=== PATIENT | male | born 1950 | race Two or more races ===

== ENCOUNTER → 2020-10-26 | Outpatient (CLI) | payer BC | END | disposition home or self-care (01) | LOC: LAB 15:17 | PROVIDERS: ATTEND Internal Medicine Gastroenterology | DX: B18.2 Chronic viral hepatitis C (principal) | CPT/HCPCS: 36415; 86803 ==

== ENCOUNTER → 2020-11-12 | Outpatient (CLI) | payer BC ==
[2020-11-12 12:51] LABS: Basophils # (auto) 0.1 10 ^3/uL (0-0.2); Basophils % (auto) 1.2 % (0.0-2.0); Eosinophils # (auto) 0.1 10 ^3/uL (0-0.8); Eosinophils % (auto) 1.9 % (0.0-7.0); Hematocrit 30.5 % (41.0-53.0); Hemoglobin 9.9 g/dL (13.5-17.5); Lymphocytes # (auto) 1.3 10 ^3/uL (0.4-5.4); Lymphocytes % (auto) 19.9 % (10.0-50.0); Mean Corpuscular Hemoglobin 27.4 pg (28.0-32.0); Mean Corpuscular Hgb Conc. 32.4 g/dL (32.0-36.0); Mean Corpuscular Volume 84.7 fL (80.0-100.0); Monocytes # (auto) 0.8 10 ^3/uL (0-1.3); Monocytes % (auto) 12.2 % (0.0-12.0); Neutrophils # (auto) 4.1 10 ^3/uL (1.6-8.6); Neutrophils % (auto) 64.8 % (37.0-80.0); Red Cell Distribution Width 16.7 % (11.8-14.3); White Blood Cell 6.3 10^3/uL (4.4-10.8)
[2020-11-12 13:20] LABS: Albumin 2.7 g/dL (3.4-5.0); Calcium 8.8 mg/dL (8.5-10.1); Potassium 4.1 mmol/L (3.5-5.1)
[2020-11-12 13:26] LABS: BUN/Creatinine Ratio 15.5; Bilirubin, Total 0.5 mg/dL (0.2-1.0)
== END | disposition home or self-care (01) ==
LOC: LAB 12:00
PROVIDERS: ATTEND Internal Medicine
DX: Z12.11 Encounter for screening for malignant neoplasm of colon (principal); I10 Essential (primary) hypertension; B18.2 Chronic viral hepatitis C
CPT/HCPCS: 36415; 80053; 80061; 83036; 84153; 85025

== ENCOUNTER → 2021-03-01 | Outpatient (CLI) | payer BC ==
[2021-03-01 15:30] LABS: Basophils # (auto) 0.1 10 ^3/uL (0-0.2); Basophils % (auto) 0.9 % (0.0-2.0); Eosinophils # (auto) 0.1 10 ^3/uL (0-0.8); Eosinophils % (auto) 1.1 % (0.0-7.0); Hematocrit 32.7 % (41.0-53.0); Hemoglobin 10.7 g/dL (13.5-17.5); Lymphocytes # (auto) 1.2 10 ^3/uL (0.4-5.4); Lymphocytes % (auto) 13.6 % (10.0-50.0); Mean Corpuscular Hemoglobin 28.3 pg (28.0-32.0); Mean Corpuscular Hgb Conc. 32.6 g/dL (32.0-36.0); Mean Corpuscular Volume 86.9 fL (80.0-100.0); Monocytes # (auto) 1.1 10 ^3/uL (0-1.3); Monocytes % (auto) 12.9 % (0.0-12.0); Neutrophils # (auto) 6.2 10 ^3/uL (1.6-8.6); Neutrophils % (auto) 71.5 % (37.0-80.0); Nucleated Red Blood Cells % 0.1 %; Red Blood Cells 3.77 10^6/uL (4.5-5.90); Red Cell Distribution Width 15.6 % (11.8-14.3); White Blood Cell 8.7 10^3/uL (4.4-10.8)
== END | disposition home or self-care (01) ==
LOC: LAB 15:13
PROVIDERS: ATTEND Internal Medicine
DX: D64.9 Anemia, unspecified (principal)
CPT/HCPCS: 36415; 85025

== ENCOUNTER → 2021-03-24 | Outpatient (CLI) | payer BC ==
[2021-03-24 11:04] LABS: Basophils # (auto) 0.1 10 ^3/uL (0-0.2); Basophils % (auto) 0.8 % (0.0-2.0); Eosinophils # (auto) 0.1 10 ^3/uL (0-0.8); Hematocrit 32.5 % (41.0-53.0); Hemoglobin 10.5 g/dL (13.5-17.5); Lymphocytes # (auto) 1.2 10 ^3/uL (0.4-5.4); Lymphocytes % (auto) 11.4 % (10.0-50.0); Mean Corpuscular Hgb Conc. 32.4 g/dL (32.0-36.0); Mean Corpuscular Volume 86.2 fL (80.0-100.0); Monocytes % (auto) 9.6 % (0.0-12.0); Neutrophils # (auto) 8.1 10 ^3/uL (1.6-8.6); Neutrophils % (auto) 77.2 % (37.0-80.0); Nucleated Red Blood Cells % 0.1 %; Red Blood Cells 3.77 10^6/uL (4.5-5.90); Red Cell Distribution Width 15.5 % (11.8-14.3); White Blood Cell 10.4 10^3/uL (4.4-10.8)
[2021-03-24 11:21] LABS: INR 1.08 (0.9-1.15); Partial Thromboplastin Time 29.2 sec (23.6-33.0)
[2021-03-24 12:19] LABS: Albumin 2.7 g/dL (3.4-5.0); Calcium 9.1 mg/dL (8.5-10.1); Potassium 4.6 mmol/L (3.5-5.1)
[2021-03-24 12:24] LABS: BUN/Creatinine Ratio 21.4; Bilirubin, Total 0.7 mg/dL (0.2-1.0); Total Protein 8.7 g/dL (6.4-8.2)
[2021-03-24 16:08] LABS: Urine Bacteria FEW /hpf (None Seen); Urine Blood Negative /uL (Negative); Urine Specific Gravity 1.011 (1.001-1.035); Urine WBC 45 /hpf (0 - 3)
== END | disposition home or self-care (01) ==
LOC: LAB 10:50
PROVIDERS: ATTEND Internal Medicine
DX: Z01.812 Encounter for preprocedural laboratory examination (principal)
CPT/HCPCS: 36415; 80053; 81001; 85025; 85610; 85730

== ENCOUNTER → 2021-04-30 | Outpatient (CLI) | payer BC ==
[2021-04-30 07:39] LABS: Basophils # (auto) 0.1 10 ^3/uL (0-0.2); Eosinophils # (auto) 0.3 10 ^3/uL (0-0.8); Hematocrit 24.1 % (41.0-53.0); Lymphocytes # (auto) 0.8 10 ^3/uL (0.4-5.4); Mean Corpuscular Volume 82.7 fL (80.0-100.0); Neutrophils # (auto) 6.7 10 ^3/uL (1.6-8.6); White Blood Cell 8.6 10^3/uL (4.4-10.8)
[2021-04-30 07:40] LABS: Urine Blood Negative /uL (Negative); Urine Specific Gravity 1.014 (1.001-1.035)
[2021-04-30 07:41] LABS: Eosinophils % (auto) 3.4 % (0.0-7.0); Hemoglobin 7.9 g/dL (13.5-17.5); Lymphocytes % (auto) 9.6 % (10.0-50.0); Mean Corpuscular Hemoglobin 27.2 pg (28.0-32.0); Mean Corpuscular Hgb Conc. 32.9 g/dL (32.0-36.0); Monocytes # (auto) 0.7 10 ^3/uL (0-1.3); Monocytes % (auto) 8.6 % (0.0-12.0); Neutrophils % (auto) 77.4 % (37.0-80.0); Nucleated Red Blood Cells % 0.1 %; Red Blood Cells 2.91 10^6/uL (4.5-5.90); Red Cell Distribution Width 16.1 % (11.8-14.3)
[2021-04-30 08:03] LABS: INR 1.05 (0.9-1.15); Partial Thromboplastin Time 27.6 sec (23.6-33.0)
[2021-04-30 08:21] LABS: Potassium 4.3 mmol/L (3.5-5.1)
[2021-04-30 08:27] LABS: Albumin 2.1 g/dL (3.4-5.0); Bilirubin, Total 0.2 mg/dL (0.2-1.0); Calcium 8.7 mg/dL (8.5-10.1); Total Protein 7.5 g/dL (6.4-8.2)
== END | disposition home or self-care (01) ==
LOC: LAB 06:49
PROVIDERS: ATTEND Specialist
DX: Z01.812 Encounter for preprocedural laboratory examination (principal); H25.12 Age-related nuclear cataract, left eye; D68.9 Coagulation defect, unspecified; Z79.01 Long term (current) use of anticoagulants
CPT/HCPCS: 36415; 80053; 81003; 85025; 85610; 85730

== ENCOUNTER → 2021-06-25 | Outpatient (CLI) | payer BC ==
[2021-06-25 12:35] LABS: Eosinophils # (auto) 0.1 10 ^3/uL (0-0.8); Hemoglobin 8.7 g/dL (13.5-17.5); Monocytes # (auto) 0.6 10 ^3/uL (0-1.3); Neutrophils # (auto) 4.4 10 ^3/uL (1.6-8.6); White Blood Cell 6.2 10^3/uL (4.4-10.8)
[2021-06-25 12:37] LABS: Basophils # (auto) 0.1 10 ^3/uL (0-0.2); Eosinophils % (auto) 2.1 % (0.0-7.0); Hematocrit 28.5 % (41.0-53.0); Mean Corpuscular Hgb Conc. 30.5 g/dL (32.0-36.0); Mean Corpuscular Volume 78.5 fL (80.0-100.0); Monocytes % (auto) 10.1 % (0.0-12.0); Neutrophils % (auto) 70.8 % (37.0-80.0); Nucleated Red Blood Cells % 0.1 %; Red Blood Cells 3.62 10^6/uL (4.5-5.90); Red Cell Distribution Width 17.1 % (11.8-14.3)
[2021-06-25 13:06] LABS: BUN/Creatinine Ratio 16.1; Potassium 4.4 mmol/L (3.5-5.1)
== END | disposition home or self-care (01) ==
LOC: LAB 12:06
PROVIDERS: ATTEND Internal Medicine
DX: I10 Essential (primary) hypertension (principal); D64.9 Anemia, unspecified
CPT/HCPCS: 36415; 80048; 85025

== ENCOUNTER 2021-11-03 10:11 | Inpatient (IN) | payer BC, MEDICARE ==
[~2021-11-03] VITALS: Ht 175.3 cm; Wt 72.7 kg
[2021-11-03] VITALS (8 sets, daily range): BP systolic 113–136; BP diastolic 62–72
[2021-11-03 11:06] LABS: INR 1.13 (0.9-1.15); Partial Thromboplastin Time 29.1 sec (24.6-33.4)
[2021-11-03 11:09] LABS: Albumin 1.5 g/dL (3.4-5.0); Calcium 8.5 mg/dL (8.5-10.1); Magnesium 2.3 mg/dL (1.6-2.6); Potassium 3.9 mmol/L (3.5-5.1)
[2021-11-03 11:12] LABS: BUN/Creatinine Ratio 15.3; Basophils # (auto) 0 10 ^3/uL (0-0.2); Basophils % (auto) 0.4 % (0.0-2.0); Bilirubin, Total 0.4 mg/dL (0.2-1.0); Eosinophils # (auto) 0 10 ^3/uL (0-0.8); Eosinophils % (auto) 0.3 % (0.0-7.0); Hematocrit 21.3 % (41.0-53.0); Lymphocytes # (auto) 0.8 10 ^3/uL (0.4-5.4); Lymphocytes % (auto) 7.9 % (10.0-50.0); Mean Corpuscular Hemoglobin 21.1 pg (28.0-32.0); Mean Corpuscular Hgb Conc. 29.5 g/dL (32.0-36.0); Mean Corpuscular Volume 71.6 fL (80.0-100.0); Monocytes # (auto) 0.8 10 ^3/uL (0-1.3); Monocytes % (auto) 7.2 % (0.0-12.0); Neutrophils # (auto) 8.9 10 ^3/uL (1.6-8.6); Neutrophils % (auto) 84.2 % (37.0-80.0); Red Blood Cells 2.97 10^6/uL (4.5-5.90); Total Protein 7.2 g/dL (6.4-8.2); White Blood Cell 10.6 10^3/uL (4.4-10.8)
[2021-11-03 11:23] LABS: Hemoglobin 6.3 g/dL (13.5-17.5)
[2021-11-03] MEDS ORDERED: SODIUM CHLORIDE 0.9% 1,000 ML IVB ONE (12:30)
[2021-11-03 12:41] LABS: Albumin 1.5 g/dL (3.4-5.0); Calcium 8.7 mg/dL (8.5-10.1); Potassium 4.3 mmol/L (3.5-5.1)
[2021-11-03 12:44] LABS: BUN/Creatinine Ratio 16.2; Bilirubin, Total 0.4 mg/dL (0.2-1.0); Total Protein 7.5 g/dL (6.4-8.2)
[2021-11-03 19:44] LABS: Eosinophils # (auto) 0.1 10 ^3/uL (0-0.8)
[2021-11-03 19:47] LABS: Basophils # (auto) 0.1 10 ^3/uL (0-0.2); Basophils % (auto) 0.5 % (0.0-2.0); Eosinophils % (auto) 0.6 % (0.0-7.0); Hematocrit 25.7 % (41.0-53.0); Hemoglobin 7.6 g/dL (13.5-17.5); Lymphocytes % (auto) 7.3 % (10.0-50.0); Mean Corpuscular Hemoglobin 22.6 pg (28.0-32.0); Mean Corpuscular Hgb Conc. 29.4 g/dL (32.0-36.0); Mean Corpuscular Volume 76.7 fL (80.0-100.0); Monocytes # (auto) 1.2 10 ^3/uL (0-1.3); Monocytes % (auto) 8.9 % (0.0-12.0); Neutrophils # (auto) 10.8 10 ^3/uL (1.6-8.6); Neutrophils % (auto) 82.7 % (37.0-80.0); Nucleated Red Blood Cells % 0.2 %; Red Blood Cells 3.35 10^6/uL (4.5-5.90); Red Cell Distribution Width 18.7 % (11.8-14.3); White Blood Cell 13.1 10^3/uL (4.4-10.8)
[2021-11-03] MEDS ORDERED: SODIUM CHLORIDE 0.9% 1,000 ML IV SCH (22:45)
[2021-11-03] MEDS ORDERED: ONDANSETRON HCL 4 MG/2 ML VIAL IV PRN (22:45)
[2021-11-04 00:15] VITALS: BP 121/69
[2021-11-04 00:30] VITALS: BP 127/68
[2021-11-04 00:45] VITALS: BP 122/74
[2021-11-04] MEDS ORDERED: PANTOPRAZOLE 40 MG/10 ML VIAL INJ IV SCH (10:00)
[2021-11-04] MEDS ORDERED: cefTRIAXone 1GM/50ML D5W 50 ML IV ONE (10:15)
[2021-11-05] MEDS ORDERED: cefTRIAXone 1GM/50ML D5W 50 ML IV SCH (09:00)
== END 2021-11-04 00:58 | disposition left against medical advice (07) | DRG 377 ==
LOC: ER 10:14 → OVERFLOW 22:40
PROVIDERS: ADMIT Nurse Practitioner; ATTEND Internal Medicine
PROC: 30233N1 Transfusion of Nonautologous Red Blood Cells into Peripheral Vein, Percutaneous Approach (ICD-10-PCS; principal; 2021-11-03)
DX: K92.2 Gastrointestinal hemorrhage, unspecified (principal); E43 Unspecified severe protein-calorie malnutrition; B19.20 Unspecified viral hepatitis C without hepatic coma; M41.9 Scoliosis, unspecified; Z53.29 Procedure and treatment not carried out because of patient's decision for other reasons; Z20.822 Contact with and (suspected) exposure to COVID-19; D64.9 Anemia, unspecified; Z88.0 Allergy status to penicillin; Z68.23 Body mass index [BMI] 23.0-23.9, adult
CPT/HCPCS: 36415; 71045; 80053; 80320; 83605; 83735; 83880; 84484; 85025; 85610; 85730; 86850; 86900; 86901; 86920; 93005; 96360; 99291; G0378

== ENCOUNTER 2021-11-26 12:06 | Inpatient (IN) | payer BC, MEDICARE ==
[~2021-11-26] VITALS: Ht 175.3 cm; Wt 74.9 kg
[2021-11-26] MEDS ORDERED: VANCOMYCIN 1GM/250ML 250 ML IV ONE (14:45)
[2021-11-26] MEDS ORDERED: SODIUM CHLORIDE 0.9% 1,000 ML IVB ONE (14:45)
[2021-11-26] MEDS ORDERED: PIPERACILLIN-TAZOB 3.375GM 100 ML IV ONE (15:15)
[2021-11-26 15:24] LABS: Basophils # (auto) 0 10 ^3/uL (0-0.2); Eosinophils # (auto) 0.1 10 ^3/uL (0-0.8); Eosinophils % (auto) 0.3 % (0.0-7.0); Lymphocytes # (auto) 0.8 10 ^3/uL (0.4-5.4); White Blood Cell 16.5 10^3/uL (4.4-10.8)
[2021-11-26 15:27] LABS: Basophils % (auto) 0.2 % (0.0-2.0); Hematocrit 22.4 % (41.0-53.0); Lymphocytes % (auto) 4.7 % (10.0-50.0); Mean Corpuscular Hemoglobin 22.1 pg (28.0-32.0); Mean Corpuscular Hgb Conc. 29.1 g/dL (32.0-36.0); Mean Corpuscular Volume 75.9 fL (80.0-100.0); Monocytes # (auto) 0.6 10 ^3/uL (0-1.3); Monocytes % (auto) 3.8 % (0.0-12.0); Red Blood Cells 2.95 10^6/uL (4.5-5.90); Red Cell Distribution Width 22.4 % (11.8-14.3)
[2021-11-26 15:41] LABS: Calcium 9.5 mg/dL (8.5-10.1); Potassium 4.5 mmol/L (3.5-5.1)
[2021-11-26 15:58] LABS: Albumin 1.4 g/dL (3.4-5.0); Bilirubin, Total 0.2 mg/dL (0.2-1.0); Total Protein 6.8 g/dL (6.4-8.2)
[2021-11-26 16:05] LABS: Hemoglobin 6.5 g/dL (13.5-17.5)
[2021-11-26] MEDS ORDERED: MORPHINE SULFATE INJ 2 MG/ml SYRG IV PRN (17:45)
[2021-11-26] MEDS ORDERED: VANCOMYCIN PER PHARMACY 0 MG IV SCH (18:00)
[2021-11-26] MEDS ORDERED: ALBUMIN 25% 50 ML IV ONE (18:30)
[2021-11-26] MEDS: SODIUM CHLORIDE 0.9% 1,000 ML IV SCH (18:43)
[2021-11-26] MEDS: MEROPENEM 1GM IVPB 100 ML IV SCH (21:54)
[2021-11-26] MEDS ORDERED: PIPERACILLIN-TAZOB 3.375GM 100 ML IV SCH (22:00)
[2021-11-26] MEDS: NOREPINEPHRINE 8 MG/250ML KIT 250 ML IV SCH (23:20)
[2021-11-27] VITALS (28 sets, daily range): BP systolic 93–124; BP diastolic 51–75
[2021-11-27 06:51] LABS: Basophils # (auto) 0.2 10 ^3/uL (0-0.2); Eosinophils # (auto) 0.1 10 ^3/uL (0-0.8); Monocytes # (auto) 0.8 10 ^3/uL (0-1.3)
[2021-11-27 06:53] LABS: Basophils % (auto) 1.1 % (0.0-2.0); Eosinophils % (auto) 0.8 % (0.0-7.0); Hematocrit 20.6 % (41.0-53.0); Lymphocytes # (auto) 0.8 10 ^3/uL (0.4-5.4); Lymphocytes % (auto) 4.8 % (10.0-50.0); Mean Corpuscular Hemoglobin 22.5 pg (28.0-32.0); Mean Corpuscular Hgb Conc. 30.4 g/dL (32.0-36.0); Mean Corpuscular Volume 74.1 fL (80.0-100.0); Monocytes % (auto) 4.9 % (0.0-12.0); Neutrophils # (auto) 14.6 10 ^3/uL (1.6-8.6); Neutrophils % (auto) 88.4 % (37.0-80.0); Nucleated Red Blood Cells % 0.1 %; Red Blood Cells 2.78 10^6/uL (4.5-5.90); White Blood Cell 16.5 10^3/uL (4.4-10.8)
[2021-11-27 07:29] LABS: Red Cell Distribution Width 21.9 % (11.8-14.3)
[2021-11-27 07:31] LABS: Hemoglobin 6.3 g/dL (13.5-17.5)
[2021-11-27 08:01] LABS: Albumin 1.3 g/dL (3.4-5.0); Calcium 8.9 mg/dL (8.5-10.1); Potassium 4.2 mmol/L (3.5-5.1)
[2021-11-27 08:04] LABS: BUN/Creatinine Ratio 20.1; Bilirubin, Total 0.2 mg/dL (0.2-1.0); Total Protein 6.4 g/dL (6.4-8.2)
[2021-11-27] MEDS: MEROPENEM 1GM IVPB 100 ML IV SCH ×2 (09:14→20:44)
[2021-11-27] MEDS: SODIUM CHLORIDE 0.9% 1,000 ML IV SCH ×2 (09:14→21:34)
[2021-11-27 11:16] LABS: Urine Bacteria FEW /hpf (None Seen); Urine Blood 1+ /uL (Negative); Urine Mucus FEW (None Seen); Urine Specific Gravity 1.017 (1.001-1.035); Urine WBC 44 /hpf (0 - 3)
[2021-11-27] MEDS: VANCOMYCIN 750mg/250ml 250 ML IV SCH (13:26)
[2021-11-27] MEDS: NOREPINEPHRINE 8 MG/250ML KIT 250 ML IV SCH (21:33)
[2021-11-27 22:35] LABS: Monocytes # (auto) 0.7 10 ^3/uL (0-1.3); Red Cell Distribution Width 20.7 % (11.8-14.3); White Blood Cell 16.3 10^3/uL (4.4-10.8)
[2021-11-27 22:37] LABS: Basophils # (auto) 0.2 10 ^3/uL (0-0.2); Basophils % (auto) 1.2 % (0.0-2.0); Eosinophils # (auto) 0.1 10 ^3/uL (0-0.8); Eosinophils % (auto) 0.4 % (0.0-7.0); Hematocrit 30.6 % (41.0-53.0); Hemoglobin 9.6 g/dL (13.5-17.5); Lymphocytes % (auto) 6.3 % (10.0-50.0); Mean Corpuscular Hemoglobin 24.2 pg (28.0-32.0); Mean Corpuscular Hgb Conc. 31.4 g/dL (32.0-36.0); Monocytes % (auto) 4.6 % (0.0-12.0); Neutrophils # (auto) 14.2 10 ^3/uL (1.6-8.6); Neutrophils % (auto) 87.5 % (37.0-80.0); Red Blood Cells 3.97 10^6/uL (4.5-5.90)
[2021-11-28] VITALS (38 sets, daily range): BP systolic 89–128; BP diastolic 41–69
[2021-11-28 04:13] LABS: BUN/Creatinine Ratio 20.6; Calcium 8.6 mg/dL (8.5-10.1); Potassium 3.9 mmol/L (3.5-5.1)
[2021-11-28] MEDS: MEROPENEM 1GM IVPB 100 ML IV SCH ×2 (08:40→19:52)
[2021-11-28] MEDS: VANCOMYCIN 750mg/250ml 250 ML IV SCH ×2 (13:00→17:20)
[2021-11-28] MEDS: SODIUM CHLORIDE 0.9% 1,000 ML IV SCH (21:00)
[2021-11-29] MEDS: MEROPENEM 1GM IVPB 100 ML IV SCH ×2 (00:50→09:32)
[2021-11-29 05:00] VITALS: BP 106/68
[2021-11-29] MEDS: SODIUM CHLORIDE 0.9% 1,000 ML IV SCH ×2 (09:33→17:45)
[2021-11-29 10:58] LABS: Basophils # (auto) 0.1 10 ^3/uL (0-0.2); Eosinophils # (auto) 0.1 10 ^3/uL (0-0.8); Hemoglobin 8.2 g/dL (13.5-17.5); Monocytes # (auto) 0.5 10 ^3/uL (0-1.3)
[2021-11-29 10:59] LABS: Basophils % (auto) 1.1 % (0.0-2.0); Eosinophils % (auto) 1.1 % (0.0-7.0); Hematocrit 27.1 % (41.0-53.0); Lymphocytes # (auto) 0.8 10 ^3/uL (0.4-5.4); Mean Corpuscular Hemoglobin 23.8 pg (28.0-32.0); Mean Corpuscular Volume 79.1 fL (80.0-100.0); Monocytes % (auto) 5.5 % (0.0-12.0); Neutrophils % (auto) 84.3 % (37.0-80.0); Nucleated Red Blood Cells % 0.1 %; Red Blood Cells 3.43 10^6/uL (4.5-5.90); Red Cell Distribution Width 21.5 % (11.8-14.3); White Blood Cell 9.5 10^3/uL (4.4-10.8)
[2021-11-29 13:00] VITALS: BP 106/63
[2021-11-29] MEDS ORDERED: VANCOMYCIN 1GM/250ML 250 ML IV SCH (13:00)
[2021-11-29] MEDS ORDERED: levoFLOXacin 500MG 100 ML IV ONE (13:45)
[2021-11-29] MEDS: SODIUM FERR GLUC 62.5MG/5ML 125 MG in SODIUM CHL 0.9% 100 ML IV SCH (13:59)
[2021-11-29 17:00] VITALS: BP 112/61
[2021-11-29 22:00] VITALS: BP 109/66
[2021-11-30] MEDS: SODIUM CHLORIDE 0.9% 1,000 ML IV SCH (01:45)
[2021-11-30 05:00] VITALS: BP 117/69
[2021-11-30 07:06] LABS: Immunoglobulin G, Serum 2283 mg/dL (603-1613)
[2021-11-30 09:00] VITALS: BP 122/70
[2021-11-30] MEDS ORDERED: levoFLOXacin 500MG 100 ML IV SCH (10:00)
[2021-11-30] MEDS ORDERED: LEVO500T31 PO (10:34)
[2021-11-30] MEDS: SODIUM FERR GLUC 62.5MG/5ML 125 MG in SODIUM CHL 0.9% 100 ML IV SCH (12:00)
[2021-11-30 14:30] VITALS: BP 111/68
== END 2021-11-30 16:00 | disposition home or self-care (01) | DRG 871 ==
LOC: ER 12:15 → TELE 17:54 → ICU WEST 11-27 15:00 → WEST WING 11-28 12:33 → TELE-WESTW 11-28 16:02
PROVIDERS: ADMIT Registered Nurse; ATTEND Family Medicine
PROC: 30233N1 Transfusion of Nonautologous Red Blood Cells into Peripheral Vein, Percutaneous Approach (ICD-10-PCS; principal; 2021-11-27)
DX: A41.59 Other Gram-negative sepsis (principal); E43 Unspecified severe protein-calorie malnutrition; L89.324 Pressure ulcer of left buttock, stage 4; L89.314 Pressure ulcer of right buttock, stage 4; L89.154 Pressure ulcer of sacral region, stage 4; R65.21 Severe sepsis with septic shock; G82.20 Paraplegia, unspecified; M86.652 Other chronic osteomyelitis, left thigh; Z20.822 Contact with and (suspected) exposure to COVID-19; B95.2 Enterococcus as the cause of diseases classified elsewhere; D50.9 Iron deficiency anemia, unspecified; Z68.22 Body mass index [BMI] 22.0-22.9, adult; Z74.01 Bed confinement status; Z88.0 Allergy status to penicillin
CPT/HCPCS: 36415; 71045; 72192; 80048; 80053; 80202; 81001; 82232; 82565; 82784; 83605; 83615; 83883; 85025; 85045; 86334; 86850; 86870; 86880; 86900; 86901; 86922; 87040; 87077; 87081; 87086; 87186; 87205; 96365; 96367; 99291; G0378; J1956; J2185; J2543

== ENCOUNTER → 2022-01-11 | Outpatient (CLI) | payer BC, MEDICARE ==
[~2022-01-11] MED LIST: LEVO500T31 PO
[2022-01-11 11:49] LABS: Basophils # (auto) 0.1 10 ^3/uL (0-0.2); Eosinophils # (auto) 0.1 10 ^3/uL (0-0.8); Hemoglobin 8.5 g/dL (13.5-17.5); Mean Corpuscular Volume 80.2 fL (80.0-100.0)
[2022-01-11 11:51] LABS: Basophils % (auto) 0.9 % (0.0-2.0); Hematocrit 27.6 % (41.0-53.0); Lymphocytes % (auto) 9.4 % (10.0-50.0); Mean Corpuscular Hemoglobin 24.6 pg (28.0-32.0); Mean Corpuscular Hgb Conc. 30.7 g/dL (32.0-36.0); Monocytes # (auto) 0.7 10 ^3/uL (0-1.3); Monocytes % (auto) 6.4 % (0.0-12.0); Neutrophils # (auto) 8.8 10 ^3/uL (1.6-8.6); Neutrophils % (auto) 82.3 % (37.0-80.0); Red Blood Cells 3.44 10^6/uL (4.5-5.90); Red Cell Distribution Width 18.8 % (11.8-14.3); White Blood Cell 10.7 10^3/uL (4.4-10.8)
[2022-01-11 12:46] LABS: Potassium 4.3 mmol/L (3.5-5.1)
[2022-01-11 12:55] LABS: Albumin 1.3 g/dL (3.4-5.0); BUN/Creatinine Ratio 16.2; Bilirubin, Total 0.4 mg/dL (0.2-1.0); Calcium 8.2 mg/dL (8.5-10.1); Total Protein 6.9 g/dL (6.4-8.2)
== END | disposition home or self-care (01) ==
LOC: LAB 11:12
PROVIDERS: ATTEND Internal Medicine
DX: L89.304 Pressure ulcer of unspecified buttock, stage 4 (principal); D64.9 Anemia, unspecified
CPT/HCPCS: 36415; 80053; 85025

== ENCOUNTER → 2022-03-31 | Outpatient (CLI) | payer BC, MEDICARE ==
[2022-03-31 13:32] LABS: Basophils # (auto) 0.1 10 ^3/uL (0-0.2); Eosinophils # (auto) 0.2 10 ^3/uL (0-0.8); Lymphocytes # (auto) 1.4 10 ^3/uL (0.4-5.4); Mean Corpuscular Volume 75.6 fL (80.0-100.0)
[2022-03-31 13:33] LABS: Basophils % (auto) 0.8 % (0.0-2.0); Eosinophils % (auto) 1.5 % (0.0-7.0); Hematocrit 26.7 % (41.0-53.0); Hemoglobin 8.2 g/dL (13.5-17.5); Mean Corpuscular Hemoglobin 23.3 pg (28.0-32.0); Mean Corpuscular Hgb Conc. 30.8 g/dL (32.0-36.0); Monocytes % (auto) 9.3 % (0.0-12.0); Neutrophils # (auto) 8.3 10 ^3/uL (1.6-8.6); Neutrophils % (auto) 75.4 % (37.0-80.0); Red Blood Cells 3.53 10^6/uL (4.5-5.90); Red Cell Distribution Width 15.7 % (11.8-14.3)
[2022-03-31 14:04] LABS: Albumin 1.6 g/dL (3.4-5.0); Potassium 4.2 mmol/L (3.5-5.1)
[2022-03-31 14:15] LABS: BUN/Creatinine Ratio 18.4; Bilirubin, Total 0.2 mg/dL (0.2-1.0); Total Protein 7.9 g/dL (6.4-8.2)
== END | disposition home or self-care (01) ==
LOC: LAB 13:19
PROVIDERS: ATTEND Internal Medicine
DX: L89.304 Pressure ulcer of unspecified buttock, stage 4 (principal); C82.20 Follicular lymphoma grade III, unspecified, unspecified site; K92.2 Gastrointestinal hemorrhage, unspecified; D50.9 Iron deficiency anemia, unspecified
CPT/HCPCS: 36415; 80053; 85025; 85652

== ENCOUNTER → 2022-04-14 | Outpatient (CLI) | payer BC, MEDICARE ==
[2022-04-14 12:40] LABS: Basophils # (auto) 0.1 10 ^3/uL (0-0.2); Eosinophils # (auto) 0.1 10 ^3/uL (0-0.8); Monocytes # (auto) 0.6 10 ^3/uL (0-1.3); Neutrophils # (auto) 9.4 10 ^3/uL (1.6-8.6)
[2022-04-14 12:41] LABS: Basophils % (auto) 0.8 % (0.0-2.0); Hemoglobin 7.4 g/dL (13.5-17.5); Lymphocytes % (auto) 8.6 % (10.0-50.0); Mean Corpuscular Hemoglobin 23.6 pg (28.0-32.0); Mean Corpuscular Hgb Conc. 30.7 g/dL (32.0-36.0); Mean Corpuscular Volume 76.6 fL (80.0-100.0); Monocytes % (auto) 5.5 % (0.0-12.0); Neutrophils % (auto) 84.1 % (37.0-80.0); Nucleated Red Blood Cells % 0.1 %; Red Blood Cells 3.14 10^6/uL (4.5-5.90); Red Cell Distribution Width 16.4 % (11.8-14.3); White Blood Cell 11.2 10^3/uL (4.4-10.8)
[2022-04-14 13:00] LABS: Amylase 29 U/L (25-115); Lipase 121 U/L (73-393)
[2022-04-14 13:08] LABS: INR 1.04 (0.9-1.15); Partial Thromboplastin Time 25.9 sec (24.6-33.4)
== END | disposition home or self-care (01) ==
LOC: LAB 12:19
PROVIDERS: ATTEND Internal Medicine
DX: L89.319 Pressure ulcer of right buttock, unspecified stage (principal); R10.9 Unspecified abdominal pain; E43 Unspecified severe protein-calorie malnutrition; D64.9 Anemia, unspecified
CPT/HCPCS: 36415; 82140; 82150; 83036; 83690; 84443; 85025; 85610; 85730

== ENCOUNTER 2022-05-06 10:47 | Emergency (ER) | payer BC, MEDICARE ==
[~2022-05-06] VITALS: Ht 177.8 cm; Wt 72.7 kg
[2022-05-06 12:33] LABS: INR 1.09 (0.9-1.15); Partial Thromboplastin Time 27.1 sec (24.6-33.4)
[2022-05-06 12:38] LABS: Albumin 1.4 g/dL (3.4-5.0); Calcium 8.7 mg/dL (8.5-10.1); Potassium 4.5 mmol/L (3.5-5.1)
[2022-05-06 12:41] LABS: BUN/Creatinine Ratio 25.9; Bilirubin, Total 0.2 mg/dL (0.2-1.0); Total Protein 7.6 g/dL (6.4-8.2)
[2022-05-06 13:56] LABS: Basophils # (auto) 0.1 10 ^3/uL (0-0.2); Eosinophils # (auto) 0.1 10 ^3/uL (0-0.8); Eosinophils % (auto) 0.6 % (0.0-7.0); Hematocrit 21.8 % (41.0-53.0); Lymphocytes # (auto) 1.1 10 ^3/uL (0.4-5.4); Lymphocytes % (auto) 8.5 % (10.0-50.0); Mean Corpuscular Hemoglobin 22.9 pg (28.0-32.0); Mean Corpuscular Hgb Conc. 30.7 g/dL (32.0-36.0); Mean Corpuscular Volume 74.7 fL (80.0-100.0); Monocytes # (auto) 1.2 10 ^3/uL (0-1.3); Monocytes % (auto) 8.9 % (0.0-12.0); Neutrophils # (auto) 10.8 10 ^3/uL (1.6-8.6); Nucleated Red Blood Cells % 0.1 %; Red Blood Cells 2.92 10^6/uL (4.5-5.90); Red Cell Distribution Width 17.2 % (11.8-14.3); White Blood Cell 13.3 10^3/uL (4.4-10.8)
[2022-05-06 13:59] LABS: Hemoglobin 6.7 g/dL (13.5-17.5)
[2022-05-07 00:36] VITALS: BP 89/52
[2022-05-07 01:00] VITALS: BP 94/51
[2022-05-07 02:40] VITALS: BP 100/51
[2022-05-07 03:20] VITALS: BP 92/51
[2022-05-07 04:05] LABS: Hematocrit 25.7 % (41.0-53.0)
[2022-05-07 05:00] VITALS: BP 92/57
== END 2022-05-06 23:58 | disposition home or self-care (01) ==
LOC: ER 10:47
DX: D64.9 Anemia, unspecified (principal); Z88.5 Allergy status to narcotic agent; Z88.0 Allergy status to penicillin; Z98.890 Other specified postprocedural states
CPT/HCPCS: 36415; 36430; 80053; 85014; 85018; 85025; 85610; 85730; 86850; 86870; 86900; 86901; 93005; 99291; P9016; 86922

== ENCOUNTER → 2022-05-23 | Outpatient (CLI) | payer BC, MEDICARE ==
[2022-05-23 14:08] LABS: Basophils # (auto) 0.1 10 ^3/uL (0-0.2); Eosinophils # (auto) 0.1 10 ^3/uL (0-0.8); Hematocrit 28.4 % (41.0-53.0); Hemoglobin 9.1 g/dL (13.5-17.5); Lymphocytes # (auto) 1.1 10 ^3/uL (0.4-5.4); Mean Corpuscular Hemoglobin 24.2 pg (28.0-32.0)
[2022-05-23 14:10] LABS: Basophils % (auto) 1.3 % (0.0-2.0); Eosinophils % (auto) 1.1 % (0.0-7.0); Lymphocytes % (auto) 10.8 % (10.0-50.0); Mean Corpuscular Hgb Conc. 31.9 g/dL (32.0-36.0); Mean Corpuscular Volume 75.9 fL (80.0-100.0); Monocytes # (auto) 0.9 10 ^3/uL (0-1.3); Neutrophils # (auto) 7.8 10 ^3/uL (1.6-8.6); Neutrophils % (auto) 77.8 % (37.0-80.0); Red Blood Cells 3.75 10^6/uL (4.5-5.90); Red Cell Distribution Width 19.2 % (11.8-14.3)
== END | disposition home or self-care (01) ==
LOC: LAB 13:55
PROVIDERS: ATTEND Internal Medicine
DX: D64.9 Anemia, unspecified (principal)
CPT/HCPCS: 36415; 85025

== ENCOUNTER → 2022-08-04 | Outpatient (CLI) | payer BC, MEDICARE ==
[2022-08-04 12:02] LABS: Eosinophils # (auto) 0.2 10 ^3/uL (0-0.8); Eosinophils % (auto) 1.8 % (0.0-7.0); Hemoglobin 7.8 g/dL (13.5-17.5); Lymphocytes # (auto) 1.3 10 ^3/uL (0.4-5.4)
[2022-08-04 12:03] LABS: Basophils # (auto) 0.1 10 ^3/uL (0-0.2); Basophils % (auto) 0.5 % (0.0-2.0); Hematocrit 26.3 % (41.0-53.0); Lymphocytes % (auto) 12.4 % (10.0-50.0); Mean Corpuscular Hemoglobin 21.4 pg (28.0-32.0); Mean Corpuscular Hgb Conc. 29.6 g/dL (32.0-36.0); Mean Corpuscular Volume 72.5 fL (80.0-100.0); Monocytes % (auto) 8.9 % (0.0-12.0); Neutrophils # (auto) 8.2 10 ^3/uL (1.6-8.6); Neutrophils % (auto) 76.4 % (37.0-80.0); Red Blood Cells 3.63 10^6/uL (4.5-5.90); Red Cell Distribution Width 17.6 % (11.8-14.3); White Blood Cell 10.8 10^3/uL (4.4-10.8)
[2022-08-04 12:48] LABS: Albumin 1.4 g/dL (3.4-5.0); Calcium 8.8 mg/dL (8.5-10.1); Potassium 3.8 mmol/L (3.5-5.1)
[2022-08-04 12:52] LABS: BUN/Creatinine Ratio 19.5 (10.0-20.0); Bilirubin, Total 0.2 mg/dL (0.2-1.0)
[2022-08-04 17:06] LABS: INR 1.02 (0.9-1.15)
== END | disposition home or self-care (01) ==
LOC: LAB 11:37
PROVIDERS: ATTEND Internal Medicine
DX: B18.2 Chronic viral hepatitis C (principal); M86.9 Osteomyelitis, unspecified; D64.9 Anemia, unspecified
CPT/HCPCS: 36415; 80053; 82140; 85025; 85610; 85652

== ENCOUNTER → 2022-09-28 | Outpatient (CLI) | payer BC, MEDICARE ==
[~2022-09-28] MED LIST changes: +BUPIVACAINE HCL 0.25% P/F 10 ML VIAL ONE; +IOHEXOL 300 MG/ML 100ML BOTTLE IJ ONE; +LIDOCAINE 2%HCL (LOCAL ANESTH.) INJ 10ml MDV ONE; +methylPREDNISolone ACETATE 80 MG/ML VL ONE
== END | disposition home or self-care (01) ==
LOC: EDSEX 11:10 → XYW 11:10
PROVIDERS: ATTEND Orthopaedic Surgery Adult Reconstructive Orthopaedic Surgery
DX: M25.512 Pain in left shoulder (principal); M12.811 Other specific arthropathies, not elsewhere classified, right shoulder
CPT/HCPCS: 20610; 73020; 76000; J1040; J2001; J3490; Q9967

== ENCOUNTER 2022-10-26 11:57 | Inpatient (IN) | payer BC, MEDICARE ==
[~2022-10-26] VITALS: Ht 175.3 cm; Wt 72.2 kg
[~2022-10-26 11:57] MED LIST changes: -BUPIVACAINE HCL 0.25% P/F 10 ML VIAL ONE; -IOHEXOL 300 MG/ML 100ML BOTTLE IJ ONE; -LIDOCAINE 2%HCL (LOCAL ANESTH.) INJ 10ml MDV ONE; -methylPREDNISolone ACETATE 80 MG/ML VL ONE
[2022-10-26 13:05] LABS: Basophils # (auto) 0.1 10 ^3/uL (0-0.2); Eosinophils # (auto) 0.1 10 ^3/uL (0-0.8); Lymphocytes # (auto) 1.4 10 ^3/uL (0.4-5.4); Neutrophils % (auto) 75.5 % (37.0-80.0)
[2022-10-26 13:07] LABS: Basophils % (auto) 0.7 % (0.0-2.0); Eosinophils % (auto) 0.7 % (0.0-7.0); Hematocrit 24.6 % (41.0-53.0); Hemoglobin 7.1 g/dL (13.5-17.5); Lymphocytes % (auto) 11.8 % (10.0-50.0); Mean Corpuscular Hemoglobin 20.8 pg (28.0-32.0); Mean Corpuscular Volume 71.9 fL (80.0-100.0); Monocytes # (auto) 1.3 10 ^3/uL (0-1.3); Monocytes % (auto) 11.3 % (0.0-12.0); Neutrophils # (auto) 8.7 10 ^3/uL (1.6-8.6); Red Blood Cells 3.43 10^6/uL (4.5-5.90); Red Cell Distribution Width 19.5 % (11.8-14.3); White Blood Cell 11.5 10^3/uL (4.4-10.8)
[2022-10-26 13:30] LABS: Alanine Aminotransferase < 6 U/L (16-61); Albumin 1.2 g/dL (3.4-5.0); Anion Gap 6 (5-15); Blood Urea Nitrogen 19 mg/dL (7-18); Calcium 7.8 mg/dL (8.5-10.1); Carbon Dioxide 20 mmol/L (21-32); Chloride 105 mmol/L (98-107); Glucose 115 mg/dL (74-106); Potassium 4.6 mmol/L (3.5-5.1); Sodium 131 mmol/L (136-145)
[2022-10-26 13:33] LABS: Alkaline Phosphatase 107 U/L (45-117); Aspartate Aminotransferase 11 U/L (15-37); BUN/Creatinine Ratio 15.8 (10.0-20.0); Bilirubin, Total 0.1 mg/dL (0.2-1.0); GFR African American 77 mL/min; GFR Non-African American 63 mL/min; Total Protein 5.4 g/dL (6.4-8.2)
[2022-10-26 13:56] LABS: Anisocytosis Slight; Hypochromia Moderate; Platelet Estimate Increased
[2022-10-26 14:50] VITALS: PULSE 87; RESP 18; O2SAT 99
[2022-10-26] MEDS ORDERED: IOHEXOL 300 MG/ML 100ML BOTTLE IJ ONE (15:32)
[2022-10-26 17:01] LABS: Urine Bacteria FEW /hpf (None Seen); Urine Blood Negative /uL (Negative); Urine Clarity Clear (Clear); Urine Color Yellow (Yellow); Urine Hyaline Cast FEW /lpf (0 - 2); Urine Mucus FEW (None Seen); Urine Protein, UAD TRACE (Negative); Urine Specific Gravity 1.014 (1.001-1.035); Urine Urobilinogen Normal (Negative); Urine WBC 8 /hpf (0 - 3); Urine pH 5.5 (5.0-8.0)
[2022-10-26] MEDS ORDERED: CEFEPIME 1GM/ 50ML 50 ML IV ONE (19:45)
[2022-10-26] MEDS ORDERED: VANCOMYCIN 1GM/250ML 250 ML IV ONE (19:45)
[2022-10-26 20:00] VITALS: PULSE 82; RESP 14; O2SAT 99
[2022-10-26] MEDS ORDERED: VANCOMYCIN PER PHARMACY 0 MG IV SCH (21:15)
[2022-10-26] MEDS ORDERED: MORPHINE SULFATE INJ 2 MG/ml SYRG IV PRN ×2 (21:15)
[2022-10-26] MEDS ORDERED: NITROGLYCERIN 0.4 MG SL TAB SL PRN (21:15)
[2022-10-26] MEDS: CEFEPIME 1GM/ 50ML 50 ML IV SCH (22:28)
[2022-10-26] MEDS: D5W/SOD CHLO 0.9% 1,000 ML IV SCH (22:44)
[2022-10-26] MEDS ORDERED: ALBUMIN 5% 250 ML IV ONE (23:15)
[2022-10-27] VITALS (16 sets, daily range): BP systolic 98–123; BP diastolic 56–76; PULSE 64–79; RESP 13–21; TEMP 97.6–97.9; O2SAT 97–99
[2022-10-27] MEDS ORDERED: SODIUM CHLORIDE 0.9% 500 ML IV ONE (00:15)
[2022-10-27] MEDS: PHENYLEPHRINE IV 250 ML IV SCH ×3 (00:22→19:30)
[2022-10-27] MEDS: CEFEPIME 1GM/ 50ML 50 ML IV SCH ×3 (07:24→22:48)
[2022-10-27 08:06] LABS: Eosinophils # (auto) 0.1 10 ^3/uL (0-0.8); Hematocrit 31.9 % (41.0-53.0); Nucleated Red Blood Cells % 0.2 %
[2022-10-27 08:08] LABS: Basophils # (auto) 0.2 10 ^3/uL (0-0.2); Basophils % (auto) 1.5 % (0.0-2.0); Eosinophils % (auto) 1.1 % (0.0-7.0); Lymphocytes # (auto) 1.3 10 ^3/uL (0.4-5.4); Lymphocytes % (auto) 11.8 % (10.0-50.0); Mean Corpuscular Hemoglobin 24.5 pg (28.0-32.0); Mean Corpuscular Hgb Conc. 31.4 g/dL (32.0-36.0); Monocytes % (auto) 9.5 % (0.0-12.0); Neutrophils # (auto) 8.3 10 ^3/uL (1.6-8.6); Neutrophils % (auto) 76.1 % (37.0-80.0); Red Blood Cells 4.09 10^6/uL (4.5-5.90); White Blood Cell 10.9 10^3/uL (4.4-10.8)
[2022-10-27 08:19] LABS: Red Cell Distribution Width 21.2 % (11.8-14.3)
[2022-10-27 09:02] LABS: Albumin 1.3 g/dL (3.4-5.0); BUN/Creatinine Ratio 24.4 (10.0-20.0); Calcium 7.6 mg/dL (8.5-10.1); Potassium 3.9 mmol/L (3.5-5.1)
[2022-10-27 09:04] LABS: Bilirubin, Total 2.3 mg/dL (0.2-1.0); Total Protein 5.2 g/dL (6.4-8.2)
[2022-10-27] MEDS: VANCOMYCIN 1GM/250ML 250 ML IV SCH ×2 (09:15→20:59)
[2022-10-27 09:57] LABS: INR 1.36 (0.9-1.15); Partial Thromboplastin Time 35.6 SEC (24.5-34.5)
[2022-10-27] MEDS: PANTOPRAZOLE 40 MG/10 ML VIAL INJ IV SCH (11:13)
[2022-10-27] MEDS: D5W/SOD CHLO 0.9% 1,000 ML IV SCH (17:12)
[2022-10-28] MEDS: D5W/SOD CHLO 0.9% 1,000 ML IV SCH ×2 (00:07→13:53)
[2022-10-28] MEDS: PHENYLEPHRINE IV 250 ML IV SCH ×2 (01:15→09:35)
[2022-10-28] MEDS: CEFEPIME 1GM/ 50ML 50 ML IV SCH ×3 (06:00→22:15)
[2022-10-28 07:25] VITALS: PULSE 96; RESP 18; O2SAT 98
[2022-10-28 07:57] LABS: Eosinophils # (auto) 0.1 10 ^3/uL (0-0.8); Hemoglobin 10.9 g/dL (13.5-17.5); Monocytes # (auto) 0.4 10 ^3/uL (0-1.3); Red Blood Cells 4.56 10^6/uL (4.5-5.90)
[2022-10-28 07:59] LABS: Basophils # (auto) 0.3 10 ^3/uL (0-0.2); Basophils % (auto) 3.3 % (0.0-2.0); Eosinophils % (auto) 1.8 % (0.0-7.0); Mean Corpuscular Hgb Conc. 31.3 g/dL (32.0-36.0); Mean Corpuscular Volume 76.8 fL (80.0-100.0); Monocytes % (auto) 5.1 % (0.0-12.0); Neutrophils # (auto) 6.6 10 ^3/uL (1.6-8.6); Neutrophils % (auto) 77.8 % (37.0-80.0); Red Cell Distribution Width 21.1 % (11.8-14.3); White Blood Cell 8.5 10^3/uL (4.4-10.8)
[2022-10-28 08:21] LABS: BUN/Creatinine Ratio 19.8 (10.0-20.0); Calcium 8.1 mg/dL (8.5-10.1); Potassium 3.3 mmol/L (3.5-5.1)
[2022-10-28 08:35] VITALS: PULSE 66; RESP 18; O2SAT 96
[2022-10-28] MEDS: VANCOMYCIN 1GM/250ML 250 ML IV SCH (09:00)
[2022-10-28] MEDS: PANTOPRAZOLE 40 MG/10 ML VIAL INJ IV SCH (10:19)
[2022-10-28 16:45] VITALS: BP 110/72; PULSE 86; RESP 16; TEMP 97.3; O2SAT 99
[2022-10-28 17:48] VITALS: BP 110/72; PULSE 86; RESP 16; TEMP 97.3; O2SAT 99
[2022-10-28 20:00] VITALS: PULSE 75
[2022-10-28 22:00] VITALS: BP 111/73; PULSE 106; RESP 18; TEMP 98.1; O2SAT 99
[2022-10-29] VITALS (20 sets, daily range): BP systolic 99–123; BP diastolic 64–79; PULSE 79–102; RESP 13–24; TEMP 97.3–98.4; O2SAT 96–100
[2022-10-29 05:51] LABS: Basophils # (auto) 0.1 10 ^3/uL (0-0.2); Eosinophils # (auto) 0.1 10 ^3/uL (0-0.8); Hemoglobin 10.2 g/dL (13.5-17.5)
[2022-10-29 05:54] LABS: Basophils % (auto) 1.1 % (0.0-2.0); Eosinophils % (auto) 1.5 % (0.0-7.0); Hematocrit 32.5 % (41.0-53.0); Lymphocytes % (auto) 10.1 % (10.0-50.0); Mean Corpuscular Hemoglobin 24.4 pg (28.0-32.0); Mean Corpuscular Hgb Conc. 31.5 g/dL (32.0-36.0); Mean Corpuscular Volume 77.3 fL (80.0-100.0); Monocytes # (auto) 0.7 10 ^3/uL (0-1.3); Monocytes % (auto) 7.1 % (0.0-12.0); Neutrophils # (auto) 7.8 10 ^3/uL (1.6-8.6); Neutrophils % (auto) 80.2 % (37.0-80.0); Nucleated Red Blood Cells % 0.1 %; White Blood Cell 9.8 10^3/uL (4.4-10.8)
[2022-10-29] MEDS: CEFEPIME 1GM/ 50ML 50 ML IV SCH ×3 (06:03→22:09)
[2022-10-29 06:04] LABS: Calcium 7.6 mg/dL (8.5-10.1); Potassium 3.6 mmol/L (3.5-5.1)
[2022-10-29] MEDS: D5W/SOD CHLO 0.9% 1,000 ML IV SCH ×2 (06:04→15:46)
[2022-10-29 06:06] LABS: Red Cell Distribution Width 21.6 % (11.8-14.3)
[2022-10-29 06:14] LABS: BUN/Creatinine Ratio 21.4 (10.0-20.0)
[2022-10-29] MEDS: PANTOPRAZOLE 40 MG/10 ML VIAL INJ IV SCH ×2 (08:24→20:17)
[2022-10-29] MEDS ORDERED: AMIODARONE BOLUS KIT 100 ML IV ONE (09:30)
[2022-10-29] MEDS ORDERED: AMIODARONE 450mg/250ml AE 250 ML IV SCH ×2 (09:45→15:45)
[2022-10-29] MEDS ORDERED: POTASSIUM CHLORIDE 20 MEQ, LIDOCAINE 1% (LOCAL ANESTH.) 2 ML in SODIUM CHL 0.9% 100 ML IV ONE (10:30)
[2022-10-29] MEDS ORDERED: ASPirin 81 mg TAB PO ONE (10:45)
[2022-10-29] MEDS ORDERED: DIGOXIN (250MCG/ML) 2 ML AMPULE IV ONE ×3 (11:15→18:00)
[2022-10-29] MEDS: ALBUMIN 25% 100 ML IV SCH ×2 (12:41→17:44)
[2022-10-29] MEDS: VANCOMYCIN 500 MG in D5W 5% 100 ML IV SCH (13:00)
[2022-10-29] MEDS: metroNIDAZOLE 500MG/100ML 100 ML IV SCH ×2 (13:26→22:09)
[2022-10-29] MEDS ORDERED: AMIODARONE HCL (50 MG/ ML) 3 ML VIAL IV ONE (16:50)
[2022-10-29] MEDS ORDERED: ADENOSINE 6 MG/2 ML INJ IV ONE (16:50)
[2022-10-29] MEDS ORDERED: D5W 5% 100 ML BAG IV ONE (16:50)
[2022-10-30] VITALS (36 sets, daily range): BP systolic 97–129; BP diastolic 52–77; PULSE 66–107; RESP 14–24; TEMP 97.4–98.1; O2SAT 97–100
[2022-10-30] MEDS: ALBUMIN 25% 100 ML IV SCH (03:17)
[2022-10-30 04:45] LABS: Basophils # (auto) 0.1 10 ^3/uL (0-0.2); Basophils % (auto) 0.9 % (0.0-2.0); Eosinophils # (auto) 0.1 10 ^3/uL (0-0.8); Hemoglobin 8.4 g/dL (13.5-17.5); Neutrophils # (auto) 6.6 10 ^3/uL (1.6-8.6)
[2022-10-30 04:48] LABS: Eosinophils % (auto) 1.3 % (0.0-7.0); Lymphocytes # (auto) 0.6 10 ^3/uL (0.4-5.4); Lymphocytes % (auto) 8.1 % (10.0-50.0); Mean Corpuscular Hemoglobin 25.3 pg (28.0-32.0); Mean Corpuscular Hgb Conc. 32.4 g/dL (32.0-36.0); Monocytes # (auto) 0.5 10 ^3/uL (0-1.3); Monocytes % (auto) 6.2 % (0.0-12.0); Neutrophils % (auto) 83.5 % (37.0-80.0); Red Blood Cells 3.33 10^6/uL (4.5-5.90); White Blood Cell 7.9 10^3/uL (4.4-10.8)
[2022-10-30 05:02] LABS: Potassium 3.2 mmol/L (3.5-5.1)
[2022-10-30] MEDS: metroNIDAZOLE 500MG/100ML 100 ML IV SCH ×3 (05:09→21:48)
[2022-10-30] MEDS: D5W/SOD CHLO 0.9% 1,000 ML IV SCH ×2 (05:15→17:56)
[2022-10-30 05:22] LABS: Albumin 1.9 g/dL (3.4-5.0); BUN/Creatinine Ratio 20.9 (10.0-20.0); Calcium 7.8 mg/dL (8.5-10.1)
[2022-10-30 05:34] LABS: Red Cell Distribution Width 21.4 % (11.8-14.3)
[2022-10-30 05:36] LABS: Bilirubin, Total 0.6 mg/dL (0.2-1.0); Total Protein 5.1 g/dL (6.4-8.2)
[2022-10-30] MEDS: CEFEPIME 1GM/ 50ML 50 ML IV SCH ×3 (06:45→21:49)
[2022-10-30] MEDS: ASPirin 81 mg TAB PO SCH (08:50)
[2022-10-30] MEDS ORDERED: POTASSIUM CHLORIDE 40 MEQ, LIDOCAINE 1% (LOCAL ANESTH.) 4 ML in SODIUM CHL 0.9% 250 ML IV ONE (10:45)
[2022-10-30] MEDS: ONDANSETRON HCL 4 MG/2 ML VIAL IV PRN ×2 (11:23→18:51)
[2022-10-30] MEDS: VANCOMYCIN 500 MG in D5W 5% 100 ML IV SCH ×2 (12:41→17:57)
[2022-10-30 13:35] LABS: Hemoglobin 8.8 g/dL (13.5-17.5)
[2022-10-30 13:37] LABS: Hematocrit 29.4 % (41.0-53.0)
[2022-10-30 23:44] LABS: Hemoglobin 8.8 g/dL (13.5-17.5)
[2022-10-30 23:45] LABS: Hematocrit 28.9 % (41.0-53.0)
[2022-10-31] VITALS (12 sets, daily range): BP systolic 99–129; BP diastolic 65–78; PULSE 77–108; RESP 18–24; TEMP 97.4–98; O2SAT 96–100
[2022-10-31 05:30] LABS: Basophils # (auto) 0.1 10 ^3/uL (0-0.2); Eosinophils # (auto) 0.1 10 ^3/uL (0-0.8); Hemoglobin 8.7 g/dL (13.5-17.5); Lymphocytes # (auto) 0.7 10 ^3/uL (0.4-5.4); Mean Corpuscular Volume 78.3 fL (80.0-100.0); Monocytes # (auto) 0.8 10 ^3/uL (0-1.3); Neutrophils # (auto) 7.5 10 ^3/uL (1.6-8.6); White Blood Cell 9.2 10^3/uL (4.4-10.8)
[2022-10-31 05:31] LABS: Eosinophils % (auto) 1.3 % (0.0-7.0); Hematocrit 28.2 % (41.0-53.0); Lymphocytes % (auto) 7.5 % (10.0-50.0); Mean Corpuscular Hemoglobin 24.1 pg (28.0-32.0); Mean Corpuscular Hgb Conc. 30.8 g/dL (32.0-36.0); Monocytes % (auto) 8.2 % (0.0-12.0)
[2022-10-31 05:35] LABS: Red Cell Distribution Width 21.1 % (11.8-14.3)
[2022-10-31 06:08] LABS: Chloride 120 mmol/L (98-107); Potassium 3.4 mmol/L (3.5-5.1); Sodium 140 mmol/L (136-145)
[2022-10-31 06:16] LABS: Alanine Aminotransferase < 6 U/L (16-61); Albumin 1.9 g/dL (3.4-5.0); Alkaline Phosphatase 76 U/L (45-117); Anion Gap 5 (5-15); Aspartate Aminotransferase 5 U/L (15-37); BUN/Creatinine Ratio 17.6 (10.0-20.0); Bilirubin, Total 0.5 mg/dL (0.2-1.0); Blood Urea Nitrogen 12 mg/dL (7-18); Calcium 7.9 mg/dL (8.5-10.1); Carbon Dioxide 15 mmol/L (21-32); GFR African American 148 mL/min; GFR Non-African American 122 mL/min; Glucose 81 mg/dL (74-106)
[2022-10-31] MEDS: CEFEPIME 1GM/ 50ML 50 ML IV SCH ×3 (07:28→21:47)
[2022-10-31] MEDS: metroNIDAZOLE 500MG/100ML 100 ML IV SCH ×3 (07:28→21:46)
[2022-10-31] MEDS: D5W/SOD CHLO 0.9% 1,000 ML IV SCH ×2 (07:55→21:54)
[2022-10-31] MEDS ORDERED: POTASSIUM CHL 20MEQ/100ML 100 ML IV ONE (08:15)
[2022-10-31] MEDS ORDERED: POTASSIUM CHL 20 Meq TABLET PO ONE (08:45)
[2022-10-31] MEDS: ASPirin 81 mg TAB PO SCH (10:00)
[2022-10-31] MEDS: PANTOPRAZOLE 40 MG/10 ML VIAL INJ IV SCH (10:00)
[2022-10-31] MEDS: ONDANSETRON HCL 4 MG/2 ML VIAL IV PRN (16:01)
[2022-10-31] MEDS: Juven Orange Powder PACKET 27.5gm PO SCH (18:00)
[2022-10-31] MEDS: Pro-Stat SF 30ml Vanilla PO SCH (18:00)
[2022-11-01] VITALS (7 sets, daily range): BP systolic 117–132; BP diastolic 38–82; PULSE 86–112; RESP 17–22; TEMP 97.5–98.2; O2SAT 97–99
[2022-11-01] MEDS: VANCOMYCIN 500 MG in D5W 5% 100 ML IV SCH (01:22)
[2022-11-01 06:02] LABS: Eosinophils # (auto) 0.2 10 ^3/uL (0-0.8); Eosinophils % (auto) 1.7 % (0.0-7.0); Hemoglobin 8.6 g/dL (13.5-17.5); Lymphocytes # (auto) 0.8 10 ^3/uL (0.4-5.4); Monocytes # (auto) 0.8 10 ^3/uL (0-1.3); Nucleated Red Blood Cells % 0.1 %
[2022-11-01 06:05] LABS: Basophils # (auto) 0.1 10 ^3/uL (0-0.2); Basophils % (auto) 1.3 % (0.0-2.0); Hematocrit 27.9 % (41.0-53.0); Lymphocytes % (auto) 9.2 % (10.0-50.0); Mean Corpuscular Hemoglobin 24.4 pg (28.0-32.0); Mean Corpuscular Hgb Conc. 30.9 g/dL (32.0-36.0); Mean Corpuscular Volume 78.8 fL (80.0-100.0); Monocytes % (auto) 8.7 % (0.0-12.0); Neutrophils # (auto) 7.1 10 ^3/uL (1.6-8.6); Neutrophils % (auto) 79.1 % (37.0-80.0); Red Blood Cells 3.55 10^6/uL (4.5-5.90); White Blood Cell 8.9 10^3/uL (4.4-10.8)
[2022-11-01 06:08] LABS: Red Cell Distribution Width 21.5 % (11.8-14.3)
[2022-11-01] MEDS: metroNIDAZOLE 500MG/100ML 100 ML IV SCH ×3 (06:15→22:04)
[2022-11-01] MEDS: CEFEPIME 1GM/ 50ML 50 ML IV SCH ×3 (06:15→22:06)
[2022-11-01 06:23] LABS: BUN/Creatinine Ratio 20.4 (10.0-20.0); Calcium 7.9 mg/dL (8.5-10.1); Potassium 3.4 mmol/L (3.5-5.1)
[2022-11-01] MEDS: Juven Orange Powder PACKET 27.5gm PO SCH ×2 (08:00→18:18)
[2022-11-01] MEDS: Pro-Stat SF 30ml Vanilla PO SCH ×2 (08:00→18:18)
[2022-11-01] MEDS ORDERED: POTASSIUM EFFERVESENT TAB 25 MEQ PO ONE (09:00)
[2022-11-01] MEDS: PANTOPRAZOLE 40 MG/10 ML VIAL INJ IV SCH (10:00)
[2022-11-01] MEDS: ASPirin 81 mg TAB PO SCH (10:00)
[2022-11-01] MEDS: D5W/SOD CHLO 0.9% 1,000 ML IV SCH (10:35)
[2022-11-02] VITALS (7 sets, daily range): BP systolic 117–153; BP diastolic 68–82; PULSE 88–123; RESP 16–22; TEMP 97.7–98.7; O2SAT 97–100
[2022-11-02] MEDS: metroNIDAZOLE 500MG/100ML 100 ML IV SCH ×3 (06:14→21:03)
[2022-11-02] MEDS: CEFEPIME 1GM/ 50ML 50 ML IV SCH ×3 (06:14→21:02)
[2022-11-02] MEDS: D5W/SOD CHLO 0.9% 1,000 ML IV SCH ×2 (06:14→18:21)
[2022-11-02 07:00] LABS: Basophils # (auto) 0.1 10 ^3/uL (0-0.2); Basophils % (auto) 1.2 % (0.0-2.0); Eosinophils # (auto) 0.2 10 ^3/uL (0-0.8); Eosinophils % (auto) 1.9 % (0.0-7.0); Hematocrit 30.5 % (41.0-53.0); Hemoglobin 9.5 g/dL (13.5-17.5); Lymphocytes % (auto) 10.8 % (10.0-50.0); Mean Corpuscular Hemoglobin 24.4 pg (28.0-32.0); Mean Corpuscular Volume 78.6 fL (80.0-100.0); Monocytes # (auto) 0.8 10 ^3/uL (0-1.3); Monocytes % (auto) 8.4 % (0.0-12.0); Neutrophils # (auto) 7.5 10 ^3/uL (1.6-8.6); Neutrophils % (auto) 77.7 % (37.0-80.0); Red Blood Cells 3.88 10^6/uL (4.5-5.90); White Blood Cell 9.6 10^3/uL (4.4-10.8)
[2022-11-02 07:20] LABS: Calcium 8.1 mg/dL (8.5-10.1); Potassium 3.7 mmol/L (3.5-5.1)
[2022-11-02] MEDS: VANCOMYCIN 500 MG in D5W 5% 100 ML IV SCH (08:47)
[2022-11-02] MEDS: Juven Orange Powder PACKET 27.5gm PO SCH ×2 (08:48→18:21)
[2022-11-02] MEDS: Pro-Stat SF 30ml Vanilla PO SCH ×2 (08:48→18:00)
[2022-11-02] MEDS: PANTOPRAZOLE 40 MG/10 ML VIAL INJ IV SCH (08:48)
[2022-11-02] MEDS ORDERED: IOTHALAMATE MEGLUMINE INJ 250ML BOT UR ONE ×3 (12:21→12:28)
[2022-11-02] MEDS ORDERED: FUROSEMIDE 40 MG/4 ML VIAL IV ONE (13:00)
[2022-11-02] MEDS ORDERED: POTASSIUM EFFERVESENT TAB 25 MEQ PO ONE (13:30)
[2022-11-02] MEDS: ONDANSETRON HCL 4 MG/2 ML VIAL IV PRN (18:17)
[2022-11-03] VITALS (7 sets, daily range): BP systolic 113–135; BP diastolic 65–92; PULSE 91–117; RESP 17–20; TEMP 96.7–98; O2SAT 97–99
[2022-11-03] MEDS: D5W/SOD CHLO 0.9% 1,000 ML IV SCH ×2 (02:35→15:17)
[2022-11-03] MEDS: metroNIDAZOLE 500MG/100ML 100 ML IV SCH ×3 (05:05→21:20)
[2022-11-03] MEDS: CEFEPIME 1GM/ 50ML 50 ML IV SCH ×3 (05:06→21:25)
[2022-11-03 07:03] LABS: Basophils # (auto) 0.1 10 ^3/uL (0-0.2); Basophils % (auto) 1.3 % (0.0-2.0); Eosinophils # (auto) 0.2 10 ^3/uL (0-0.8); Hemoglobin 9.3 g/dL (13.5-17.5); Lymphocytes # (auto) 1.2 10 ^3/uL (0.4-5.4); Neutrophils # (auto) 8.6 10 ^3/uL (1.6-8.6); White Blood Cell 11.1 10^3/uL (4.4-10.8)
[2022-11-03 07:06] LABS: Hematocrit 29.7 % (41.0-53.0); Mean Corpuscular Hemoglobin 24.1 pg (28.0-32.0); Mean Corpuscular Hgb Conc. 31.2 g/dL (32.0-36.0); Mean Corpuscular Volume 77.4 fL (80.0-100.0); Monocytes # (auto) 0.9 10 ^3/uL (0-1.3); Monocytes % (auto) 8.5 % (0.0-12.0); Neutrophils % (auto) 77.2 % (37.0-80.0); Red Blood Cells 3.84 10^6/uL (4.5-5.90)
[2022-11-03 07:16] LABS: INR 1.72 (0.9-1.15); Partial Thromboplastin Time 39.1 SEC (24.5-34.5); Prothrombin Time 17.4 sec (9.3-11.8)
[2022-11-03 07:20] LABS: Potassium 3.9 mmol/L (3.5-5.1)
[2022-11-03 07:28] LABS: BUN/Creatinine Ratio 22.1 (10.0-20.0); Calcium 8.1 mg/dL (8.5-10.1); Red Cell Distribution Width 21.9 % (11.8-14.3)
[2022-11-03] MEDS: Pro-Stat SF 30ml Vanilla PO SCH (08:00)
[2022-11-03] MEDS: Juven Orange Powder PACKET 27.5gm PO SCH (08:00)
[2022-11-03] MEDS: PANTOPRAZOLE 40 MG/10 ML VIAL INJ IV SCH (10:00)
[2022-11-03] MEDS ORDERED: POTASSIUM EFFERVESENT TAB 25 MEQ PO ONE (11:30)
[2022-11-03] MEDS ORDERED: ACCU-CHEK COMFORT CURVE STRIP VI ONE (17:45)
[2022-11-03] MEDS ORDERED: HYDROmorphone HCL 2 MG/ML VL/or syr IV PRN ×2 (17:45)
[2022-11-03] MEDS ORDERED: MORPHINE SULFATE INJ 2 MG/ml SYRG IV PRN (17:45)
[2022-11-03] MEDS ORDERED: METOCLOPRAMIDE HCL 5MG/ml INJ 2ml VIAL IV PRN (17:45)
[2022-11-03] MEDS ORDERED: fentaNYL CITRATE 100 MCG/2 ML VL ONE (17:54)
[2022-11-03] MEDS ORDERED: MIDAZOLAM HCL 2MG/2ML 2ml VIAL (1mg/ml) ONE (17:54)
[2022-11-03] MEDS ORDERED: ONDANSETRON HCL 4 MG/2 ML VIAL ONE (17:55)
[2022-11-03] MEDS ORDERED: SODIUM CHLORIDE LOCK 10 ML ONE (17:55)
[2022-11-03] MEDS ORDERED: PROPOFOL 10 MG/ML 20 ML IV ONE (17:55)
[2022-11-03] MEDS ORDERED: LIDOCAINE W/ EPINEPHRINE 2% INJ 20ML VIAL ONE (18:58)
[2022-11-04] VITALS (7 sets, daily range): BP systolic 103–131; BP diastolic 67–90; PULSE 108–125; RESP 17–20; TEMP 96.9–98; O2SAT 96–100
[2022-11-04] MEDS: D5W/SOD CHLO 0.9% 1,000 ML IV SCH ×2 (05:15→21:28)
[2022-11-04] MEDS: metroNIDAZOLE 500MG/100ML 100 ML IV SCH ×3 (05:40→21:27)
[2022-11-04] MEDS: CEFEPIME 1GM/ 50ML 50 ML IV SCH ×3 (05:40→21:27)
[2022-11-04 08:38] LABS: Eosinophils # (auto) 0.1 10 ^3/uL (0-0.8); Eosinophils % (auto) 1.1 % (0.0-7.0); Hematocrit 36.3 % (41.0-53.0); Hemoglobin 10.5 g/dL (13.5-17.5); Lymphocytes # (auto) 1.1 10 ^3/uL (0.4-5.4); Monocytes # (auto) 0.9 10 ^3/uL (0-1.3); Nucleated Red Blood Cells % 0.1 %
[2022-11-04 08:43] LABS: Basophils # (auto) 0.2 10 ^3/uL (0-0.2); Basophils % (auto) 1.9 % (0.0-2.0); Lymphocytes % (auto) 8.4 % (10.0-50.0); Monocytes % (auto) 6.8 % (0.0-12.0); Neutrophils # (auto) 10.9 10 ^3/uL (1.6-8.6); Neutrophils % (auto) 81.8 % (37.0-80.0); Red Blood Cells 4.37 10^6/uL (4.5-5.90); White Blood Cell 13.3 10^3/uL (4.4-10.8)
[2022-11-04 08:51] LABS: BUN/Creatinine Ratio 17.7 (10.0-20.0); Calcium 8.8 mg/dL (8.5-10.1); Potassium 4.3 mmol/L (3.5-5.1)
[2022-11-04 09:13] LABS: Red Cell Distribution Width 22.5 % (11.8-14.3)
[2022-11-04] MEDS: Juven Orange Powder PACKET 27.5gm PO SCH (09:44)
[2022-11-04] MEDS: Pro-Stat SF 30ml Vanilla PO SCH (09:44)
[2022-11-04] MEDS: PANTOPRAZOLE 40 MG/10 ML VIAL INJ IV SCH (09:45)
[2022-11-04] MEDS ORDERED: BACDST PO (10:02)
[2022-11-05 05:00] VITALS: BP 122/81; PULSE 114; RESP 20; TEMP 98.4; O2SAT 98
[2022-11-05] MEDS: CEFEPIME 1GM/ 50ML 50 ML IV SCH ×2 (06:07→13:30)
[2022-11-05] MEDS: metroNIDAZOLE 500MG/100ML 100 ML IV SCH (06:07)
[2022-11-05] MEDS: D5W/SOD CHLO 0.9% 1,000 ML IV SCH (07:13)
[2022-11-05 08:05] VITALS: BP 113/75; PULSE 111; PULSE 118; RESP 14; TEMP 97.8
[2022-11-05 09:00] VITALS: BP_SYST 113; BP_DIAS 5; BP_DIAS 56; PULSE 118; RESP 14; TEMP 97.8; O2SAT 99
[2022-11-05] MEDS: Pro-Stat SF 30ml Vanilla PO SCH ×2 (09:15→09:16)
[2022-11-05] MEDS: Juven Orange Powder PACKET 27.5gm PO SCH ×2 (09:15→09:16)
[2022-11-05] MEDS: PANTOPRAZOLE 40 MG/10 ML VIAL INJ IV SCH (09:16)
[2022-11-05 12:51] VITALS: BP 125/77; PULSE 126; RESP 14; TEMP 97.4; O2SAT 98
[2022-11-05 14:57] VITALS: BP 120/81; PULSE 110; RESP 14; TEMP 97.4; O2SAT 98
[2022-11-05] MEDS ORDERED: DAKINS QUARTER STR 0.125% (NaHypochlorite) 473 ML TOPICAL SOL TOP SCH (22:00)
== END 2022-11-05 16:00 | disposition home health service (06) | DRG 698 ==
LOC: ER 11:57 → TELE 21:20 → TELE-WESTW 10-28 16:09 → DOU IN ICU 10-29 12:39 → TELE-WESTW 10-31 18:23
PROVIDERS: ADMIT Internal Medicine; ATTEND Student in an Organized Health Care Education/Training Program
PROC: 30233N1 Transfusion of Nonautologous Red Blood Cells into Peripheral Vein, Percutaneous Approach (ICD-10-PCS; principal; 2022-10-27)
PROC: 0T9B80Z Drainage of Bladder with Drainage Device, Via Natural or Artificial Opening Endoscopic (ICD-10-PCS; 2022-11-03)
DX: N31.9 Neuromuscular dysfunction of bladder, unspecified (principal); E43 Unspecified severe protein-calorie malnutrition; L89.154 Pressure ulcer of sacral region, stage 4; D68.9 Coagulation defect, unspecified; G82.20 Paraplegia, unspecified; N32.2 Vesical fistula, not elsewhere classified; N39.0 Urinary tract infection, site not specified; I47.1 Supraventricular tachycardia; B19.20 Unspecified viral hepatitis C without hepatic coma; I10 Essential (primary) hypertension; K62.89 Other specified diseases of anus and rectum; K74.60 Unspecified cirrhosis of liver; K76.9 Liver disease, unspecified; E87.6 Hypokalemia; I48.0 Paroxysmal atrial fibrillation; D64.9 Anemia, unspecified; K76.0 Fatty (change of) liver, not elsewhere classified; K80.20 Calculus of gallbladder without cholecystitis without obstruction; L98.8 Other specified disorders of the skin and subcutaneous tissue; N26.1 Atrophy of kidney (terminal); N32.0 Bladder-neck obstruction; Z88.0 Allergy status to penicillin; Z88.5 Allergy status to narcotic agent; Z88.8 Allergy status to other drugs, medicaments and biological substances; Z79.899 Other long term (current) drug therapy; Z68.23 Body mass index [BMI] 23.0-23.9, adult; Z79.82 Long term (current) use of aspirin
CPT/HCPCS: 36415; 71045; 72192; 74177; 76775; 78315; 78707; 80048; 80053; 80202; 81001; 82040; 82962; 83735; 83880; 84443; 84484; 85014; 85018; 85025; 85610; 85730; 86850; 86870; 86900; 86901; 86902; 86922; 87081; 87086; 87088; 87186; 87205; 93005; 93306; 99291; C9113; G0378; J0153; J2001; J2250; J2405; J2704; J3490; J7042; J7060; P9047